=== PATIENT | female | born 1950 | race Caucasian/White ===

== ENCOUNTER 2016-06-27 15:16 | Inpatient (IN) ==
--- NOTE | 2016-06-27 16:32 | CT Report ---
CT angio neck Indication: Left common carotid artery dissection instantly noted on ultrasound at outside facility. CT ANGIOGRAM CAROTID ARTERIES DLP: 100 mGy*cm. One or more of the following dose reduction techniques was used: Automated exposure control, adjustment of the mA and/or kV according the patient size, or use of iterative reconstruction techniques. Technique: Axial thin cuts CT images were obtained from the aortic arch through the skull base during the arterial phase of contrast injection. 3-D vascular MIPs reconstructions and multiplanar reformats were evaluated. Omnipaque 350, 80 cc given. Comparison: None. Findings: Severity of stenosis based on NASCET criteria. Reference downstream ICA diameters are 3 4 4 mm on the right and 3.7 mm on the left. There is no significant atheromatous disease of either carotid bifurcation and no measurable stenosis on either side. The right ICA is extremely tortuous with a 180 degrees horizontal band present. Downstream of this tortuosity of the right ICA shows a undulating pattern, consistent with "string of beads". Contour of the left ICA is smooth without significant tortuosity present. Both internal carotid arteries are widely patent through the skull base. The right common carotid artery is grossly unremarkable. There is a left CCA dissection present at the level of the thyroid gland, over a distance of approximately 25 mm. The lumen of the left CCA is not appreciably narrowed, and the dissection penetrates to a depth of 2.0 mm. Minimal enhancement of the false lumen noted. Both vertebral arteries are widely patent and relatively symmetric in size. The subclavian arteries are widely patent. The aortic arch shows no dissection or aneurysm. There is virtually no atheromatous disease of the aorta present. No superior or cervical chain lymphadenopathy. Thyroid is homogeneous. Salivary glands are symmetric. Pulmonary apices are clear. No significant degenerative changes cervical spine. Visualized sinuses are clear. Airway is patent. Epiglottis is thin and the vocal cords are symmetric. Impression: 1. 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 The dissection is at the level of the thyroid gland just above the thoracic outlet. 2. Tortuosity of the right ICA with "string of beads" pattern, indicating fibromuscular dysplasia Comment: Findings discussed with both Dr. Costa and Layla at approximately 1615 hours. PROCEDURE INTERPRETED AT [facility] DEPARTMENT OF RADIOLOGY Final Report Signed by: Panchito Head M.D.
--- NOTE | 2016-06-27 16:42 | Event Note ---
65-year-old female, patient of Dr. Rich's, sent for CT angiogram after incidental finding of left CCA dissection on ultrasound at his clinic. Patient underwent CT angiogram of the carotid arteries showing a 25 mm long dissection of the proximal left CCA, as well as right ICA fibromuscular dysplasia. Patient's only neurologic complaints are of episodes of dizziness, and a history of migraine headaches of which she has not recently had one. She does experience periodic right-sided neck pain as well. Patient reports a recent history of brief episodes of chest pain for which she has self medicated with baby aspirin but not sought additional care. She currently denies chest pain. After discussing the CT angiogram findings with Dr. Rich and Dr. Costa, it was decided to admit the patient to Dr. Costa's service for anticoagulation with Lovenox and additional evaluation. Admit orders entered by me as a courtesy, and given history of recent chest pain, EKG, chest x-ray and cardiology consult ordered as well.
--- NOTE | 2016-06-27 17:13 | EKG Report ---
Stationary ECG Study [facility] Test Date: 06/27/2016 5:12:29 PM Pat Name: OTIS SELLERS Department: Room: 324 Gender: F Consulting Services Manager: HASMUKH,FOREST OFFICER : 1950 Requested by: Panchito Head Order Number: [id number] Reading MD: RANDY BUENROSTRO Intervals [place] Rate: 73 P: 60 MS: 162 QRS: 13 QRSD: 97 T: 37 QT: 388 QTc: 413 Interpretive Statements SINUS RHYTHM Electronically Signed On 07-01-16 16:12:41 CDT by RANDY BUENROSTRO [email or web address]
--- NOTE | 2016-06-27 18:06 | XRay Report ---
Exam: Chest 2 views Date: June 27, 2016 at 5:36 PM Comparison: Chest PA lateral January 02, 2012 Reason: Chest pain Findings: The cardiac silhouette is normal in size. No focal consolidation, pneumothorax or pleural effusion is identified. No acute osseous process is seen. Surgical clips are present within the right upper abdomen, suggesting cholecystectomy. Impression: No acute cardiopulmonary process is identified. PROCEDURE INTERPRETED AT [facility] DEPARTMENT OF RADIOLOGY Final Report Signed by: Dr. Vivi Sandoval
[2016-06-27 19:36] LABS: Basophils % 0.5 % (0.0-0.8); Eosinophils # 0.1 10*3/uL (0.0-0.87); Eosinophils % 2.2 % (0.00-10.9); Immature Granulocytes % 0.3 %; Immature Granulocytes Absolute 0.02 #; Lymphocytes # 1.9 10*3/uL (1.4-4.0); Mean Corpuscular HGB Conc 34.2 GM/DL (32-36); Mean Corpuscular Hemoglobin 31 PG (27-34); Mean Corpuscular Volume 90.3 FL (87-102); Mean Platelet Volume 9.7 FL (9.6-12.0); Monocytes # 0.3 10*3/uL (0.11-0.8); Monocytes % 4.9 % (1.7-12.7); Neutrophils # 3.7 10*3/uL (1.4-7.4); Neutrophils % 61.1 % (38.7-73.9); Platelet Count 127 T/CUMM (130-400); Red Blood Count 4.21 MC/CUMM (3.8-5.5); Red Cell Distribution Width 13.3 % (9.3-17.3)
[2016-06-27 20:13] LABS: Calcium 9.2 MG/DL (8.5-10.1); Potassium 3.9 MMOL/L (3.5-5.1)
[2016-06-27] MEDS ORDERED: ENOXAPARIN 30 MG/0.3 ML SYRINGE SUBCUT SCH (21:00)
[2016-06-28] MEDS ORDERED: ACETAMINOPHEN 325 MG TABLET PO PRN (09:33)
--- NOTE | 2016-06-28 11:01 | Discharge Summary ---
Hospital Course - Hospital Course Hospital Course: Melina Mabry is a 65-year-old woman who was found on outpatient carotid ultrasound yesterday to have what appeared to be a dissection of the left common carotid artery she was sent to radiology where a CT angiogram revealed what may be a dissection of the mid left common carotid artery but also may be a small area of just thickening of the artery heart fiber muscular displeasure she also has some suggestion of fibromuscular dysplasia of the right internal carotid artery she has no history of significant trauma or episodes of acute pain that would suggest a traumatic dissection or for that matter a spontaneous dissection she has never had a stroke or TIA she has had some dizzy spells but overall she is not at high risk for carotid occlusive disease based on history of non-smoking female mild hypertension no diabetes. She is been observed overnight and evaluated again by me and Dr. Head we reviewed the CT angiogram and have some question as to whether this is dissection versus just a localized area of arterial thickening such as might be associated with fibromuscular dysplasia. Are thoughts are that this should not be treated surgically or interventionally at this time but should be observed. I do think she should continue to take an 81 mg aspirin but do not believe we need to increase her anticoagulant therapy. Due to a history of some chest tightness and some difficulty intermittent mild shortness of breath Dr. Lo has seen her and will plan to follow-up with outpatient stress test and outpatient office visit at this point time I does examine Mrs. Mabry and discussed with her and her our findings and our thoughts and our plan that will be to follow-up with a CT angiogram in 1 month and of course have her follow-up with Dr. Mckeon for chest tightness she had her agree with this plan she will be discharged this morning Specialty Discharge - Follow Up or Referrals Follow up with: Krystian Lo MD [Physician] - 1 Week (OUTPATIENT STRESS TEST 1 WEEK AFTER DISCHARGE. FOLLOW UP WITH DR. LO 1 WEEK AFTER STRESS TEST) Discharge Plan - Discharge Data Disposition: Disch To Home/Self Care Condition at Discharge: Stable Discharge Diet: advance to your usual diet Activity: resume usual activities as tolerated Hygiene: no restrictions Weight Bearing at Discharge: full weight bearing Driving: no restrictions Contact your physician if you experience:: Shortness of breath - Discharge Medications No Action [place]-3/Dha/Epa/Fish Oil [Fish Oil 1,000 mg Softgel] 2,000 mg PO DAILY Nebivolol [Bystolic] 5 mg PO DAILY Aspirin [Aspirin EC] 81 mg PO DAILY Promethazine Tab [Phenergan Tab] 25 mg PO BID PRN PRN Reason: Nausea HYDROcodone/ACETAMIN 7.5-325 [[place] 7.5-325] 1 tablet PO BID PRN PRN Reason: Pain Esomeprazole Magnesium [Nexium] 20 mg PO DAILY - Follow Up or Referral Follow Up: Krystian Lo MD [Physician] - 1 Week (OUTPATIENT STRESS TEST 1 WEEK AFTER DISCHARGE. FOLLOW UP WITH DR. LO 1 WEEK AFTER STRESS TEST) Jason Costa MD [Physician] - 1 Month (ct angiogram neck in 1 month prior to appt) Warner Lay MD [Physician] - - Forms/Instructions Exam - Constitutional Vitals: Period Temp Pulse Resp BP Sys/[place] Pulse Ox Last 24 Hr 97.5 F-98.4 F 66-77 16-20 107-142/56-81 95-100 General appearance: normal weight, no acute distress - Head Head exam: Present: normal inspection - Eye Eye exam: Present: EOMI Pupils: Present: BUCK - ENT ENT exam: Present: normal external ear exam - Neck Neck exam: Present: normal inspection - Respiratory Respiratory exam: Present: clear to auscultation bilaterally - Cardiovascular Cardiovascular exam: Present: regular rate and rhythm, other (I detect no carotid bruits nor any sort of systolic murmur there is no palpable thrill in the neck or tenderness to speak of on the left there is mild tenderness posteriorly on the right suggesting musculoskeletal discomfort) - GI/Abdominal GI/Abdominal exam: Present: normal bowel sounds, soft - Extremities Exam Extremities exam: Present: normal inspection - Neurological Exam Neurological exam: Present: alert, oriented X3, normal gait, CN II-XII intact - Psychiatric Psychiatric exam: Present: normal affect, normal mood - Skin Skin exam: Present: normal color, warm Discharge Results Labs on day of discharge: Labs from last 24 hours 06/28/16 06/27/16 06/27/16 02:59 19:26 19:26 WBC 6.0 RBC 4.21 Hgb 13.0 Hct 38.0 MCV 90.3 MCH 31 MCHC 34.2 RDW 13.3 Plt Count 127 L MPV 9.7 Neut % (Auto) 61.1 Lymph % (Auto) 31.0 [place] % (Auto) 4.9 Eos % (Auto) 2.2 Baso % (Auto) 0.5 Neut # (Auto) 3.7 Lymph # (Auto) 1.9 [place] # (Auto) 0.3 Eos # (Auto) 0.1 Baso # (Auto) 0.0 Immature Gran % 0.3 Nucleated RBC % 0.0 Immature Gran # 0.02 Nucleated RBCs # 0.00 Sodium 143 Potassium 3.9 Chloride 105 Carbon Dioxide 30 Anion Gap 11.9 BUN 13 Creatinine 0.80 0.80 POC Creatinine GFR Calculation 73 73 POC Estimated GFR (eGFR) BUN/Creatinine Ratio 16.00 Glucose 133 H Calculated Osmolality 286.0 Calcium 9.2 06/27/16 15:40 WBC RBC Hgb Hct MCV MCH MCHC RDW Plt Count MPV Neut % (Auto) Lymph % (Auto) [place] % (Auto) Eos % (Auto) Baso % (Auto) Neut # (Auto) Lymph # (Auto) [place] # (Auto) Eos # (Auto) Baso # (Auto) Immature Gran % Nucleated RBC % Immature Gran # Nucleated RBCs # Sodium Potassium Chloride Carbon Dioxide Anion Gap BUN Creatinine POC Creatinine 0.61 GFR Calculation POC Estimated GFR (eGFR) > 60 BUN/Creatinine Ratio Glucose Calculated Osmolality Calcium - Imaging and Cardiology Procedure: CT: other (I have reviewed his CT angiogram with Dr. Head the findings in the left common carotid artery are subtle small are not clearly indicative of the dissection but may be a small localized area of fibromuscular dysplasia or some similar arterial wall thickening we have also reviewed the CT angiogram evaluation of the right internal carotid artery that shows some tortuosity and significant twisting and possibly some early or mild fibromuscular dysplasia but again she does not have findings consistent with significant atherosclerotic disease basically we see no atherosclerotic plaquing of her carotid bifurcations or in her aortic arch) DS: Provider Date of admission: 06/27/16 16:31 Attending physician on admission: Jason Costa MD Consults: 06/27/16 16:35 Consult to Physician [CONS] Routine Comment: Chest pain Consulting Provider: Cardiology - [facility] Person Notified: [email or web address] Date Notified: 06/27/16 Time Notified: 17:30 Discharging clinician: Jason Costa MD
--- NOTE | 2016-06-28 11:13 | Cardiology Consult Note ---
Humberto Baron Vanessa, RN, am scribing for, and in the presence of, Krystian Lo MD 11:13. Assessment and Plan - Time spent with patient Time spent with patient: Greater than 30 minutes (due to assessment, planning, documentation) (1) Chest pain Status: Acute Assessment and plan: 1. 65-year-old WF with hypertension and dyslipidemia found to have common carotid dissection by ultrasound/CTA, being treated conservatively at this point by Dr. Costa 2. At least 2 weeks of episodes of chest discomfort lasting 1-2 minutes which are atypical (usually at rest and radiate to the arm or upper back) but are associated with some shortness of breath and some modest progressive dyspnea on exertion in recent months 3. Family history of CAD with her mother father having heart attacks at age 70 and 74 respectively. 4. Schedule exercise myocardial scan in the clinic next week if possible 5. Follow-up in clinic in approximately 1-2 weeks time after the stress test. 6. She can be discharged from cardiac standpoint. Current Visit: Yes (2) Hypertension Status: Acute Current Visit: Yes (3) Dyslipidemia Status: Acute Current Visit: Yes (4) Carotid artery dissection Status: Acute Current Visit: Yes History of Present Illness - Data of Consult Patient: new to practice Consult date: 06/28/16 Requesting Physician: Panchito Head Primary care physician: Warner Lay - Consult Narrative Reason for consult: CP History of present illness: PRIMARY CUTTER HOT KNIFE: DR. THEE LO (NEW) PCP: DR. LAY CARDIOLOGY CONSULT NOTE: CHEST PAIN, CCA DISSECTION Ms. Mabry is a 65 year old white female followed by Dr. Miguel Loaiza in the past. Risk factors significant for: hypertension, hyperlipidemia, family history of CAD. She is a lifelong nonsmoker. Past medical history also includes tachycardia, anxiety, and reflux. Patient presented to her PCP with right sided neck pain, some recent dizziness, and diagnostic ultrasound revealed a left common carotic artery dissection. Presented to [facility] radiology department on 06/[address] angiogram which revealed a 25 mm dissection. It will be followed up and managed by Dr. Costa, and there will be no surgical intervention at this time. Patient had some recent chest tightness also with radiation to back and shoulder blade area. She has fatigue also and some minimal dyspnea with exertion recently. She also reports recent increase in stress level. Chest tightness is not associated with nausea, but she does report when chest tightness occurs, it is sometimes hard to take in a deep breath. Patient reports positive family history of CAD with her mother having a heart attack in her 70s and also father who after a heart attack in his 70s. EKG reveals sinus rhythm without acute ischemic finding. CC: Jason Costa MD - Home Medications and Allergies Home Medications: Home Medications Medication Instructions Recorded Confirmed Type Aspirin [Aspirin EC] 81 mg PO DAILY 06/28/16 06/28/16 History Esomeprazole Magnesium [Nexium] 20 mg PO DAILY 06/28/16 06/28/16 History HYDROcodone/ACETAMIN 7.5-325 1 tablet PO BID PRN 06/28/16 06/28/16 History [[place] 7.5-325] Nebivolol [Bystolic] 5 mg PO DAILY 06/28/16 06/28/16 History [place]-3/Dha/Epa/Fish Oil [Fish Oil 2,000 mg PO DAILY 06/28/16 06/28/16 History 1,000 mg Softgel] Promethazine Tab [Phenergan Tab] 25 mg PO BID PRN 06/28/16 06/28/16 History Allergies/Adverse Reactions: Allergies Allergy/AdvReac Type Severity Reaction Status Date / Time sumatriptan [From Imitrex] Allergy Unknown Verified 06/27/16 17:27 - Constitutional Constitutional: Present: as per HPI - EENT Eyes: Present: as per HPI Nose, mouth and throat: Present: as per HPI - Cardiovascular Cardiovascular: Present: as per HPI - Respiratory Respiratory: Present: as per HPI - Gastrointestinal Gastrointestinal: Present: as per HPI - Genitourinary Genitourinary: Present: as per HPI - Musculoskeletal Musculoskeletal: Present: as per HPI - Neurological Neurological: Present: as per HPI - Psychiatric Psychiatric: Present: as per HPI - Endocrine Endocrine: Present: as per HPI - Hematologic/Lymphatic Hematologic/Lymphatic: Present: as per HPI Medical,Surgical,& Family Hx - Medical History Cardio: History of: Hypertension No history of: Cardiac Dysrhythmia, CHF, CAD, [place], Pacemaker, PVD Psychological: History of: Anxiety Disorders Neurology: No history of: Seizures, TIA Endocrine: History of: Dyslipidemia No history of: Diabetes Mellitus (IDDM), Diabetes Mellitus (NIDDM), Thyroid Disorder Rheumatology: No history of;: Gout Respiratory: No history of: COPD, Obstructive Sleep Apnea Renal: No history of: Renal Failure Genitourinary: No history of: Recurring Urinary Tract Infections Gastrointestinal: History of: GERD No history of: Gastrointestinal Bleed Musculoskeletal: History of: Back/Neck Problems No history of: Amputation Hematology: No history of: Anemia, Blood Transfusion Reaction Other: No history of: Cancer - Surgical History Cardiac Surgeries: Patient Denies: Femoral-Popliteal Bypass Graft, Cardiac Catheterization, Cardiac Surgery, Carotid Endarterectomy, Internal Defibrillator, Vascular Access Devices Thoracic Surgeries: Patient denies;: Organ Transplant, Lobectomy Neurologic Surgeries: Patient denies: Neurologic Surgery HEENT Surgeries: Patient denies: Carotid Endarterectomy, Tonsilectomy & Adenoidectomy Abdominal Surgeries: Patient denies: Abdominal Surgery, Splenectomy Reproductive Surgeries: Surgical HX of;: Hysterectomy Patient denies;: Genitourinary Surgery Orthopedic Surgeries: Patient denies;: Implanted Devices, Orthopedic Surgery, Spinal Surgery, Total Hip Replacement, Total Knee Replacement - Family History Family History: Reports;: Family Cancer (mother colon cancer), Family Heart Disease (mom, dad), Family Hypertension (mom, dad), Family Psychiatric Problems Comment Only: Family Stroke (grandmother) Physical Examination Vital Signs Temp Pulse Resp BP Pulse Ox 98.4 F 77 20 135/81 97 06/27/16 16:51 06/27/16 16:51 06/27/16 16:51 06/27/16 16:51 06/27/16 16:51 General: Present: Appears Well, No Apparent Distress Neck: Present: Supple Neck, Midline Trachea, No JVD/HJR, No Masses, No Bruit Cardiac: Present: Reg Rate and Rhythm, No Murmur Lungs: Present: Clear Ascult./Percussion, No Wheeze, Rales, Rhonchi. Absent: Oxygen Neuro: Present: Grossly Intact. Absent: Numbness, Tingling, Weakness, Resting Tremor, Essential Tremor Abdomen: Present: Soft, Active Bowel Sounds. Absent: Tender, Firm Skin: Present: Clear. Absent: Rash, Suspicious Lesions, Bruising Extremities: Present: No Clubbing, No Cyanosis, No Edema, Normal Upper Extr. Pulses, Normal Lower Extr. Pulses, Capillary Refill (normal) Result/EKG - Labs CBC & BMP: 06/27/16 19:26 06/28/16 02:59 Lab Results: I have reviewed the past 24 hour labs Labs: Laboratory Results - last 24 hr 06/27/16 06/27/16 06/27/16 15:40 19:26 19:26 WBC 6.0 RBC 4.21 Hgb 13.0 Hct 38.0 MCV 90.3 MCH 31 MCHC 34.2 RDW 13.3 Plt Count 127 L MPV 9.7 Neut % (Auto) 61.1 Lymph % (Auto) 31.0 [place] % (Auto) 4.9 Eos % (Auto) 2.2 Baso % (Auto) 0.5 Neut # (Auto) 3.7 Lymph # (Auto) 1.9 [place] # (Auto) 0.3 Eos # (Auto) 0.1 Baso # (Auto) 0.0 Immature Gran % 0.3 Nucleated RBC % 0.0 Immature Gran # 0.02 Nucleated RBCs # 0.00 Sodium 143 Potassium 3.9 Chloride 105 Carbon Dioxide 30 Anion Gap 11.9 BUN 13 Creatinine 0.80 POC Creatinine 0.61 GFR Calculation 73 POC Estimated GFR (eGFR) > 60 BUN/Creatinine Ratio 16.00 Glucose 133 H Calculated Osmolality 286.0 Calcium 9.2 06/28/16 02:59 WBC RBC Hgb Hct MCV MCH MCHC RDW Plt Count MPV Neut % (Auto) Lymph % (Auto) [place] % (Auto) Eos % (Auto) Baso % (Auto) Neut # (Auto) Lymph # (Auto) [place] # (Auto) Eos # (Auto) Baso # (Auto) Immature Gran % Nucleated RBC % Immature Gran # Nucleated RBCs # Sodium Potassium Chloride Carbon Dioxide Anion Gap BUN Creatinine 0.80 POC Creatinine GFR Calculation 73 POC Estimated GFR (eGFR) BUN/Creatinine Ratio Glucose Calculated Osmolality Calcium - EKG EKG results: interpreted by me, no acute changes EKG shows: sinus rhythm Specialty Discharge - Follow Up or Referrals Follow up with: Warner Lay MD [Physician] - Krystian Lo MD [Physician] - 1 Week (OUTPATIENT STRESS TEST 1 WEEK AFTER DISCHARGE. FOLLOW UP WITH DR. LO 1 WEEK AFTER STRESS TEST) Jason Costa MD [Physician] - 1 Month (ct angiogram neck in 1 month prior to appt) Malena Baron Randall Scott, MD, personally performed the services described in this documentation, ascribed by Jossie Paul RN in my presence, and it is both accurate and complete .
[2016-06-28 14:05] VITALS: BP 119/58
== END 2016-06-28 12:50 | disposition home or self-care (01) | DRG 301 ==
LOC: N.CT 15:16 → N.3E 16:31
PROVIDERS: ADMIT Surgery; ATTEND Surgery

== ENCOUNTER 2019-09-09 12:01 | Observation (INO) ==
[2019-09-09 12:55] LABS: Basophils % 0.9 % (0.0-0.8); Eosinophils # 0.1 10*3/uL (0.0-0.87); Eosinophils % 3.1 % (0.00-10.9); Hematocrit 36.4 VOL% (35.7-47.0); Hemoglobin 11.9 GM/DL (12.0-16.0); Immature Granulocytes % 0.3 %; Immature Granulocytes Absolute 0.01 #; Lymphocytes # 1.2 10*3/uL (1.4-4.0); Lymphocytes % 35.9 % (21.3-54.2); Mean Corpuscular HGB Conc 32.7 GM/DL (32-36); Monocytes % 9.8 % (1.7-12.7); Platelet Count 95 T/CUMM (130-400); Red Blood Count 3.79 MC/CUMM (3.8-5.5); Red Cell Distribution Width 15.4 % (9.3-17.3); White Blood Count 3.3 T/CUMM (4-12)
[2019-09-09 13:16] LABS: Hypochromasia Slight; Platelet Estimate Decreased
[2019-09-09 13:17] LABS: Albumin 3.3 G/DL (3.4-5.0); Bilirubin,Total 0.7 MG/DL (0.2-1.0); Calcium 9.1 MG/DL (8.5-10.1); Osmolality,Calculated 283.1 MOS/KG (273-304); Total Protein 7.6 G/DL (6.4-8.3)
[2019-09-09] MEDS ORDERED: SODIUM CHLORIDE 0.9% 1,000 ML IV STA (14:40)
[2019-09-09 14:52] LABS: Apearance,Urine Slightly Hazy (Clear); Bacteria,Urine Occasional /HPF (Few); Bilirubin,Urine Negative (Negative); Blood, Urine Small mg/dL (Negative); Glucose,Urine (UA) Negative (Negative); Ketones,Urine Negative (Negative); Mucus,Urine Occasional /LPF (Occasional); Nitrite,Urine Positive (Negative); Protein,Urine Negative; RBC,Urine 1 /HPF (0-4); Squamous Epithelial Cell,Urine Occasional /HPF (0-10); Urine Color Yellow (Yellow); Urine Specific Gravity 1.011 (1.001-1.035); Urine Urobilinogen < 2.0 EU/DL (0.2-1.0); WBC,Urine 23 /HPF (0-6)
[2019-09-09 15:07] LABS: Barbiturates Screen,Urine Negative (Negative); Benzodiazepines Screen,Urine Negative (Negative); Cannabinoid Screen,Urine Negative (Negative); Opiate Screen,Urine Positive (Negative); Phencyclidine Screen,Urine Negative (Negative)
[2019-09-09] MEDS ORDERED: cefTRIAXone 1,000 MG in SODIUM CHLORIDE 0.9% 100 ML IV STA (15:39)
[2019-09-09] MEDS ORDERED: CYCLOBENZAPRINE 10 MG TABLET PO PRN (16:23)
[2019-09-09] MEDS ORDERED: GLUCAGON 1 MG VIAL IM PRN (16:24)
[2019-09-09] MEDS ORDERED: ONDANSETRON 4 MG/2 ML VIAL IV PRN (16:24)
[2019-09-09] MEDS ORDERED: DEXTROSE 50% 25 GM/50 ML VIAL IV PRN (16:24)
[2019-09-09] MEDS ORDERED: hydrALAZINE 20 MG/1 ML VIAL IV PRN (16:24)
[2019-09-09] MEDS: SODIUM CHLORIDE 0.9% 1,000 ML IV SCH (17:55)
[2019-09-09] MEDS: LACTULOSE 20 GM/30 ML UDCUP PO SCH ×2 (17:55→22:35)
[2019-09-09] MEDS: TAMSULOSIN 0.4 MG CAPSULE PO SCH (22:38)
[2019-09-09] MEDS: CHOLECALCIFEROL 1,000 UNIT TABLET PO SCH (22:38)
[2019-09-09] MEDS: SIMVASTATIN 10 MG TABLET PO SCH (22:38)
[2019-09-10] MEDS: LACTULOSE 20 GM/30 ML UDCUP PO SCH ×6 (02:39→21:32)
[2019-09-10 05:28] LABS: Basophils % 0.6 % (0.0-0.8); Eosinophils # 0.1 10*3/uL (0.0-0.87); Eosinophils % 2.8 % (0.00-10.9); Hemoglobin 10.8 GM/DL (12.0-16.0); Immature Granulocytes % 0.6 %; Immature Granulocytes Absolute 0.02 #; Lymphocytes # 1.1 10*3/uL (1.4-4.0); Lymphocytes % 32.8 % (21.3-54.2); Mean Corpuscular HGB Conc 32.7 GM/DL (32-36); Mean Corpuscular Volume 96.2 FL (87-102); Mean Platelet Volume 9.5 FL (9.6-12.0); Monocytes % 10.1 % (1.7-12.7); Neutrophils % 53.1 % (38.7-73.9); Red Blood Count 3.43 MC/CUMM (3.8-5.5); Red Cell Distribution Width 15.3 % (9.3-17.3); White Blood Count 3.3 T/CUMM (4-12)
[2019-09-10 05:53] LABS: Platelet Count 84 T/CUMM (130-400)
[2019-09-10 05:56] LABS: Albumin 3.1 G/DL (3.4-5.0); Bilirubin,Total 1.7 MG/DL (0.2-1.0); Calcium 8.7 MG/DL (8.5-10.1); Osmolality,Calculated 283.8 MOS/KG (273-304); Risk Ratio 3.79; Thyroid Stimulating Hormone 1.15 uIU/ml (0.358-3.74); VLDL CHOLESTEROL 21.4 MG/DL
[2019-09-10] MEDS: cefTRIAXone 1,000 MG in SYRINGE 1 EACH IV SCH (09:25)
[2019-09-10] MEDS: PANTOPRAZOLE 40 MG TABLET PO SCH (09:25)
[2019-09-10] MEDS: FLUTICASONE 50 MCG NASAL SPRAY 16 GM BOTTLE BOTH NARES SCH (09:25)
[2019-09-10] MEDS: NEBIVOLOL 5 MG TABLET PO SCH (09:25)
[2019-09-10] MEDS: CHOLECALCIFEROL 1,000 UNIT TABLET PO SCH ×2 (09:25→21:14)
[2019-09-10] MEDS: MULTIVITAMIN (CENTRUM) TABLET PO SCH (09:25)
[2019-09-10] MEDS: RIFAXIMIN 550 MG TABLET PO SCH ×2 (12:22→21:14)
[2019-09-10] MEDS: PROMETHAZINE 25 MG TABLET PO PRN (12:22)
[2019-09-10] MEDS: SODIUM CHLORIDE 0.9% 1,000 ML IV SCH ×2 (14:52→21:32)
[2019-09-10] MEDS: TAMSULOSIN 0.4 MG CAPSULE PO SCH (21:13)
[2019-09-10] MEDS: SIMVASTATIN 10 MG TABLET PO SCH (21:14)
[2019-09-11] MEDS: LACTULOSE 20 GM/30 ML UDCUP PO SCH ×6 (02:11→22:19)
[2019-09-11 06:17] LABS: Basophils % 0.6 % (0.0-0.8); Eosinophils # 0.1 10*3/uL (0.0-0.87); Eosinophils % 2.4 % (0.00-10.9); Hematocrit 34.8 VOL% (35.7-47.0); Hemoglobin 11.3 GM/DL (12.0-16.0); Immature Granulocytes % 0.3 %; Immature Granulocytes Absolute 0.01 #; Lymphocytes # 0.9 10*3/uL (1.4-4.0); Lymphocytes % 25.4 % (21.3-54.2); Mean Corpuscular HGB Conc 32.5 GM/DL (32-36); Mean Corpuscular Volume 94.6 FL (87-102); Mean Platelet Volume 9.9 FL (9.6-12.0); Monocytes % 10.4 % (1.7-12.7); Neutrophils % 60.9 % (38.7-73.9); Platelet Count 84 T/CUMM (130-400); Red Blood Count 3.68 MC/CUMM (3.8-5.5); Red Cell Distribution Width 15.5 % (9.3-17.3); White Blood Count 3.4 T/CUMM (4-12)
[2019-09-11 06:48] LABS: Albumin 3.2 G/DL (3.4-5.0); Bilirubin,Total 0.7 MG/DL (0.2-1.0); Calcium 8.9 MG/DL (8.5-10.1); Osmolality,Calculated 282.8 MOS/KG (273-304); Total Protein 7.4 G/DL (6.4-8.3)
[2019-09-11] MEDS: SODIUM CHLORIDE 0.9% 1,000 ML IV SCH (09:41)
[2019-09-11] MEDS: RIFAXIMIN 550 MG TABLET PO SCH ×2 (09:42→21:19)
[2019-09-11] MEDS: NEBIVOLOL 5 MG TABLET PO SCH (09:42)
[2019-09-11] MEDS: SODIUM CHLOR 0.9% KCL 40 MEQ 40 MEQ/1,000 ML BAG IV SCH ×2 (09:42→23:35)
[2019-09-11] MEDS: CHOLECALCIFEROL 1,000 UNIT TABLET PO SCH ×2 (09:42→21:19)
[2019-09-11] MEDS: FLUTICASONE 50 MCG NASAL SPRAY 16 GM BOTTLE BOTH NARES SCH (09:44)
[2019-09-11] MEDS: PANTOPRAZOLE 40 MG TABLET PO SCH (09:44)
[2019-09-11] MEDS: cefTRIAXone 1,000 MG in SYRINGE 1 EACH IV SCH (09:44)
[2019-09-11] MEDS: MULTIVITAMIN (CENTRUM) TABLET PO SCH (09:44)
[2019-09-11] MEDS: PROMETHAZINE 25 MG TABLET PO PRN (09:47)
[2019-09-11] MEDS: SIMVASTATIN 10 MG TABLET PO SCH (21:19)
[2019-09-11] MEDS: TAMSULOSIN 0.4 MG CAPSULE PO SCH (21:19)
[2019-09-12] MEDS: LACTULOSE 20 GM/30 ML UDCUP PO SCH ×3 (04:04→09:09)
[2019-09-12 06:06] LABS: Basophils % 0.3 % (0.0-0.8); Eosinophils # 0.1 10*3/uL (0.0-0.87); Eosinophils % 2.4 % (0.00-10.9); Hematocrit 33.3 VOL% (35.7-47.0); Hemoglobin 10.9 GM/DL (12.0-16.0); Lymphocytes # 1.3 10*3/uL (1.4-4.0); Lymphocytes % 39.8 % (21.3-54.2); Mean Corpuscular HGB Conc 32.7 GM/DL (32-36); Mean Corpuscular Volume 95.1 FL (87-102); Mean Platelet Volume 10.2 FL (9.6-12.0); Monocytes % 10.3 % (1.7-12.7); Neutrophils % 47.2 % (38.7-73.9); Red Cell Distribution Width 15.6 % (9.3-17.3); White Blood Count 3.3 T/CUMM (4-12)
[2019-09-12 06:13] LABS: Platelet Count 81 T/CUMM (130-400)
[2019-09-12 06:37] LABS: Hypochromasia 1+; Platelet Estimate Decreased
[2019-09-12 06:54] LABS: Albumin 3.1 G/DL (3.4-5.0); Calcium 8.8 MG/DL (8.5-10.1); Osmolality,Calculated 286.6 MOS/KG (273-304)
[2019-09-12 08:53] VITALS: BP 135/63
[2019-09-12] MEDS ORDERED: POTASSIUM CHLORIDE 20 MEQ TABLET PO SCH (09:00)
[2019-09-12] MEDS ORDERED: LACTOBACILLUS RHAMNOSUS GG CAPSULE PO SCH (09:00)
[2019-09-12] MEDS: NEBIVOLOL 5 MG TABLET PO SCH (09:08)
[2019-09-12] MEDS: MULTIVITAMIN (CENTRUM) TABLET PO SCH (09:08)
[2019-09-12] MEDS: FLUTICASONE 50 MCG NASAL SPRAY 16 GM BOTTLE BOTH NARES SCH (09:08)
[2019-09-12] MEDS: RIFAXIMIN 550 MG TABLET PO SCH (09:09)
[2019-09-12] MEDS: CHOLECALCIFEROL 1,000 UNIT TABLET PO SCH (09:09)
[2019-09-12] MEDS: PANTOPRAZOLE 40 MG TABLET PO SCH (09:09)
[2019-09-12] MEDS: cefTRIAXone 1,000 MG in SYRINGE 1 EACH IV SCH (09:09)
== END 2019-09-12 10:27 | disposition home health service (06) ==
LOC: N.ED 12:01 → N.EDINP 12:01 → SUATTDRO 15:45 → N.3E 18:20
PROVIDERS: ADMIT Hospitalist; ATTEND Family Medicine

== ENCOUNTER 2020-01-03 03:37 | Inpatient (IN) ==
[2020-01-03] MEDS ORDERED: ACETAMINOPHEN 650 MG SUPP RECTAL STA (03:55)
[2020-01-03] MEDS ORDERED: LORazepam 2 MG/1 ML VIAL IV STA (03:57)
[2020-01-03] MEDS ORDERED: SODIUM CHLORIDE 0.9% 1,000 ML IV STA ×2 (03:57→04:33)
[2020-01-03] MEDS ORDERED: LORazepam 2 MG/1 ML VIAL ONE (03:59)
[2020-01-03 04:19] LABS: Basophils % 0.4 % (0.0-0.8); Hematocrit 38.5 VOL% (35.7-47.0); Hemoglobin 12.5 GM/DL (12.0-16.0); Immature Granulocytes % 8.2 %; Immature Granulocytes Absolute 0.59 #; Lymphocytes % 13.7 % (21.3-54.2); Mean Corpuscular HGB Conc 32.5 GM/DL (32-36); Mean Corpuscular Volume 92.1 FL (87-102); Mean Platelet Volume 11.4 FL (9.6-12.0); Monocytes % 2.5 % (1.7-12.7); NRBC # 0.03 10*3/uL; Neutrophils % 75.2 % (38.7-73.9); Red Blood Count 4.18 MC/CUMM (3.8-5.5); Red Cell Distribution Width 16.4 % (9.3-17.3); White Blood Count 7.2 T/CUMM (4-12)
[2020-01-03 04:25] LABS: Platelet Count 37 T/CUMM (130-400)
[2020-01-03 04:42] LABS: Alanine Aminotransferase 39 U/L (13-56); Alkaline Phosphatase 191 U/L (45-117); Aspartate Amino Transferase 76 U/L (0-37); Blood Urea Nitrogen 41 MG/DL (7-18); Calcium 9.3 MG/DL (8.5-10.1); Estimated Glom Filtration Rate 22 ML/MIN; Glucose 116 MG/DL (74-106); Osmolality,Calculated 289.4 MOS/KG (273-304); Total Protein 7.7 G/DL (6.4-8.3)
[2020-01-03] MEDS ORDERED: PIPERACILLIN/TAZOBACTAM 3,375 MG VIAL IV ONE (04:49)
[2020-01-03] MEDS ORDERED: SODIUM CHLORIDE 0.9% 250 ML IV ONE (04:50)
[2020-01-03] MEDS ORDERED: PIPERACILLIN/TAZOBACTAM 3,375 MG in SODIUM CHLORIDE 0.9% 100 ML IV STA (04:52)
[2020-01-03 04:56] LABS: ABG Base Excess -8.9 MMOL/L (-2.5-2.5); ABG HCO3 17.2 MMOL/L (20-26); ABG Oxygen Saturation 93.8 % (95-100); ABG PCO2 23.4 MM HG (35-48); ABG PH 7.401 (7.35-7.45); ABG PO2 70.1 MM HG (80-95); ABG TCO2 13.2 MMOL/L (23-27)
[2020-01-03 05:00] LABS: Bacteria,Urine Occasional /HPF (Few); Bilirubin,Urine Negative (Negative); Blood, Urine Large mg/dL (Negative); Glucose,Urine (UA) Negative (Negative); Hyaline Casts,Urine 2 /LPF (0-3); Ketones,Urine Negative (Negative); Mucus,Urine Occasional /LPF (Occasional); Nitrite,Urine Negative (Negative); Protein,Urine 30 MG/DL; RBC,Urine 386 /HPF (0-4); Squamous Epithelial Cell,Urine Occasional /HPF (0-10); Urine Appearance CLOUDY (Clear); Urine Color Yellow (Yellow); Urine Specific Gravity 1.016 (1.001-1.035); Urine Urobilinogen < 2.0 EU/DL (0.2-1.0); WBC,Urine 87 /HPF (0-6)
[2020-01-03] MEDS ORDERED: SODIUM CHLORIDE 0.9% 500 ML IV STA (05:00)
[2020-01-03 05:04] LABS: Band Neutrophils 7 % (0-10); Hypochromasia 1+; Lymphocytes 22 % (20-55); Microcytosis 1+; Ovalocytes Slight; Platelet Estimate Decreased; Segmented Neutrophils 68 % (50-85); Total Cells Counted 100
[2020-01-03] MEDS ORDERED: VANCOMYCIN INJ 1,000 MG in SODIUM CHLORIDE 0.9% 250 ML IV STA (05:17)
[2020-01-03 05:25] LABS: INR 1.5; PT Patient Result 15.6 SECS (9.8-11.9)
[2020-01-03] MEDS ORDERED: SODIUM CHLORIDE 0.9% 1,000 ML IV PRN ×2 (05:55→08:07)
[2020-01-03] MEDS ORDERED: ALBUTEROL 2.5 MG/3 ML NEB RESP TX PRN (06:06)
[2020-01-03] MEDS ORDERED: DOCUSATE SODIUM 100 MG CAPSULE PO PRN (06:06)
[2020-01-03] MEDS ORDERED: ACETAMINOPHEN 325 MG TABLET PO PRN (06:06)
[2020-01-03] MEDS ORDERED: SODIUM CHLORIDE 0.9% 1,000 ML IV SCH (06:30)
[2020-01-03 06:41] LABS: ABG Base Excess -13.3 MMOL/L (-2.5-2.5); ABG HCO3 7.5 MMOL/L (20-26); ABG PH 7.419 (7.35-7.45); ABG PO2 149.5 MM HG (80-95); ABG TCO2 7.8 MMOL/L (23-27)
[2020-01-03 06:43] LABS: ABG PCO2 11.8 MM HG (35-48)
[2020-01-03] MEDS ORDERED: SODIUM CHLORIDE 0.9% 1,000 ML IV ONE (06:57)
[2020-01-03] MEDS ORDERED: ePHEDrine 50 MG/ML VIAL ONE (08:05)
[2020-01-03] MEDS ORDERED: fentaNYL 100 MCG/2 ML VIAL ONE (08:05)
[2020-01-03] MEDS ORDERED: SUGAMMADEX 200 MG/2 ML VIAL IV ONE (08:28)
[2020-01-03] MEDS ORDERED: PHENYLEPHRINE DRIP 20 MG/250 ML PREMIX IV ONE (08:46)
[2020-01-03] MEDS ORDERED: PHENYLEPHRINE 1 MG/10 ML SYRINGE IV ONE (08:46)
[2020-01-03] MEDS: PHENYLEPHRINE DRIP 40 MG/250 ML PREMIX IV PRN ×2 (08:55→12:15)
[2020-01-03] MEDS ORDERED: METOPROLOL TARTRATE 5 MG/5 ML VIAL IV ONE (10:40)
[2020-01-03] MEDS: SODIUM BICARB INJ 50 MEQ in SODIUM CHLORIDE 0.45% 1,000 ML IV SCH ×2 (12:30→15:38)
[2020-01-03] MEDS: cefTRIAXone 1,000 MG in SYRINGE 1 EACH IV SCH (15:39)
[2020-01-03 15:44] LABS: Calcium 7.5 MG/DL (8.5-10.1); Osmolality,Calculated 302.3 MOS/KG (273-304)
[2020-01-03] MEDS ORDERED: VANCOMYCIN INJ 1,000 MG in SODIUM CHLORIDE 0.9% 250 ML IV PRN (17:00)
[2020-01-03] MEDS ORDERED: SODIUM BICARBONATE 50 MEQ/50 ML VIAL IV ONE (17:06)
[2020-01-03] MEDS ORDERED: PIPERACILLIN/TAZOBACTAM 3,375 MG in SODIUM CHLORIDE 0.9% 100 ML IV SCH (18:00)
[2020-01-03] MEDS: SODIUM BICARB INJ 150 MEQ in DEXTROSE 5% 850 ML IV SCH (18:22)
[2020-01-03] MEDS ORDERED: ACETAMINOPHEN 650 MG SUPP RECTAL PRN (19:24)
[2020-01-04] MEDS: SODIUM BICARB INJ 150 MEQ in DEXTROSE 5% 850 ML IV SCH ×2 (00:42→08:02)
[2020-01-04 04:42] LABS: Basophils # 0.1 10*3/uL (0.0-0.2); Basophils % 0.6 % (0.0-0.8); Hematocrit 30.3 VOL% (35.7-47.0); Immature Granulocytes % 12.4 %; Immature Granulocytes Absolute 1.11 #; Lymphocytes % 10.8 % (21.3-54.2); Mean Corpuscular HGB Conc 32.7 GM/DL (32-36); Mean Corpuscular Volume 91.5 FL (87-102); Mean Platelet Volume 11.3 FL (9.6-12.0); Monocytes % 3.2 % (1.7-12.7); Red Cell Distribution Width 16.9 % (9.3-17.3); White Blood Count 8.9 T/CUMM (4-12)
[2020-01-04 04:45] LABS: Red Blood Count 3.31 MC/CUMM (3.8-5.5)
[2020-01-04 04:46] LABS: Hemoglobin 9.9 GM/DL (12.0-16.0); Platelet Count 52 T/CUMM (130-400)
[2020-01-04 05:08] LABS: Band Neutrophils 8 % (0-10); Lymphocytes 9 % (20-55); Platelet Estimate Decreased; Segmented Neutrophils 80 % (50-85); Total Cells Counted 100
[2020-01-04 05:09] LABS: Hypochromasia Slight
[2020-01-04 05:14] LABS: Albumin 2.4 G/DL (3.4-5.0); Bilirubin,Total 1.6 MG/DL (0.2-1.0); Osmolality,Calculated 307.1 MOS/KG (273-304); Total Protein 6.3 G/DL (6.4-8.3)
[2020-01-04] MEDS: ACETAMINOPHEN 325 MG TABLET PO PRN ×3 (05:14→20:34)
[2020-01-04] MEDS ORDERED: LEVALBUTEROL 1.25 MG/3 ML NEB RESP TX PRN (05:27)
[2020-01-04] MEDS ORDERED: POTASSIUM CHLORIDE 20 MEQ TABLET PO ONE (05:41)
[2020-01-04] MEDS ORDERED: MAGNESIUM SULF RIDER 2 GM in PREMIX 1 EACH IV ONE (08:07)
[2020-01-04] MEDS: POTASSIUM CHLORIDE 20 MEQ TABLET PO PRN ×2 (09:01→14:00)
[2020-01-04] MEDS: MULTIVITAMIN (CENTRUM) TABLET PO SCH (09:01)
[2020-01-04] MEDS: NEBIVOLOL 5 MG TABLET PO SCH (09:01)
[2020-01-04] MEDS: LACTULOSE 20 GM/30 ML UDCUP PO SCH (09:01)
[2020-01-04] MEDS: DEXTROSE 5% 1,000 ML IV SCH (11:46)
[2020-01-04] MEDS: cefTRIAXone 1,000 MG in SYRINGE 1 EACH IV SCH (16:10)
[2020-01-04] MEDS: TAMSULOSIN 0.4 MG CAPSULE PO SCH (20:34)
[2020-01-05] MEDS ORDERED: LORazepam 2 MG/1 ML VIAL IV ONE (02:42)
[2020-01-05 04:44] LABS: Basophils % 0.1 % (0.0-0.8); Eosinophils % 0.6 % (0.00-10.9); Hematocrit 28.1 VOL% (35.7-47.0); Hemoglobin 9.2 GM/DL (12.0-16.0); Immature Granulocytes % 0.3 %; Immature Granulocytes Absolute 0.02 #; Lymphocytes # 1.3 10*3/uL (1.4-4.0); Lymphocytes % 18.6 % (21.3-54.2); Mean Corpuscular HGB Conc 32.7 GM/DL (32-36); Mean Corpuscular Volume 90.9 FL (87-102); Mean Platelet Volume 11.4 FL (9.6-12.0); Monocytes % 4.7 % (1.7-12.7); Neutrophils % 75.7 % (38.7-73.9); Red Blood Count 3.09 MC/CUMM (3.8-5.5); Red Cell Distribution Width 16.8 % (9.3-17.3); White Blood Count 6.8 T/CUMM (4-12)
[2020-01-05 04:45] LABS: Platelet Count 54 T/CUMM (130-400)
[2020-01-05 04:57] LABS: Albumin 2.2 G/DL (3.4-5.0); Bilirubin,Total 1.7 MG/DL (0.2-1.0); Calcium 8.2 MG/DL (8.5-10.1); Osmolality,Calculated 290.7 MOS/KG (273-304); Total Protein 5.9 G/DL (6.4-8.3)
[2020-01-05 05:07] LABS: Band Neutrophils 4 % (0-10); Lymphocytes 18 % (20-55); Segmented Neutrophils 72 % (50-85); Total Cells Counted 100
[2020-01-05 05:08] LABS: Hypochromasia 2+; Platelet Estimate Decreased
[2020-01-05] MEDS: POTASSIUM CHLORIDE RIDER 10 MEQ in PREMIX 1 EACH IV PRN ×3 (05:25→09:05)
[2020-01-05] MEDS: DEXTROSE 5% 1,000 ML IV SCH (08:00)
[2020-01-05] MEDS: NEBIVOLOL 5 MG TABLET PO SCH (09:02)
[2020-01-05] MEDS: MULTIVITAMIN (CENTRUM) TABLET PO SCH (09:02)
[2020-01-05] MEDS: LACTULOSE 20 GM/30 ML UDCUP PO SCH (09:02)
[2020-01-05] MEDS ORDERED: FUROSEMIDE 40 MG/4 ML VIAL IV ONE (09:54)
[2020-01-05] MEDS ORDERED: POTASSIUM CHLORIDE 20 MEQ TABLET PO ONE (09:54)
[2020-01-05] MEDS: cefTRIAXone 1,000 MG in SYRINGE 1 EACH IV SCH (15:45)
[2020-01-05] MEDS: TAMSULOSIN 0.4 MG CAPSULE PO SCH (20:52)
[2020-01-05] MEDS: ACETAMINOPHEN 325 MG TABLET PO PRN (20:53)
[2020-01-06] MEDS: ACETAMINOPHEN 325 MG TABLET PO PRN ×2 (06:28→18:45)
[2020-01-06 06:59] LABS: Basophils % 0.2 % (0.0-0.8); Eosinophils # 0.2 10*3/uL (0.0-0.87); Hematocrit 31.2 VOL% (35.7-47.0); Hemoglobin 10.2 GM/DL (12.0-16.0); Immature Granulocytes % 0.6 %; Immature Granulocytes Absolute 0.03 #; Lymphocytes # 1.7 10*3/uL (1.4-4.0); Lymphocytes % 31.1 % (21.3-54.2); Mean Corpuscular HGB Conc 32.7 GM/DL (32-36); Mean Corpuscular Volume 90.4 FL (87-102); Mean Platelet Volume 10.6 FL (9.6-12.0); Monocytes % 12.1 % (1.7-12.7); Red Blood Count 3.45 MC/CUMM (3.8-5.5); Red Cell Distribution Width 16.3 % (9.3-17.3); White Blood Count 5.4 T/CUMM (4-12)
[2020-01-06 07:02] LABS: Platelet Count 60 T/CUMM (130-400)
[2020-01-06 07:29] LABS: Eosinophils 5 % (0-10); Hypochromasia 1+; Lymphocytes 27 % (20-55); Microcytosis 1+; Ovalocytes Slight; Platelet Estimate Decreased; Segmented Neutrophils 60 % (50-85); Total Cells Counted 100
[2020-01-06 07:31] LABS: Albumin 2.4 G/DL (3.4-5.0); Bilirubin,Total 1.2 MG/DL (0.2-1.0); Calcium 8.8 MG/DL (8.5-10.1); Osmolality,Calculated 284.1 MOS/KG (273-304); Total Protein 6.5 G/DL (6.4-8.3)
[2020-01-06] MEDS: MULTIVITAMIN (CENTRUM) TABLET PO SCH (09:06)
[2020-01-06] MEDS: LACTULOSE 20 GM/30 ML UDCUP PO SCH (09:06)
[2020-01-06] MEDS: NEBIVOLOL 5 MG TABLET PO SCH (09:06)
[2020-01-06] MEDS: CIPROFLOXACIN INJ 400 MG in PREMIX 1 EACH IV SCH ×2 (09:48→21:27)
[2020-01-06] MEDS: ONDANSETRON 4 MG/2 ML VIAL IV PRN (10:33)
[2020-01-06] MEDS ORDERED: traMADol 50 MG TABLET PO ONE (20:51)
[2020-01-06] MEDS: TAMSULOSIN 0.4 MG CAPSULE PO SCH (21:25)
[2020-01-07] MEDS ORDERED: traMADol 50 MG TABLET PO PRN (03:54)
[2020-01-07 05:50] LABS: Basophils % 0.4 % (0.0-0.8); Eosinophils # 0.2 10*3/uL (0.0-0.87); Eosinophils % 3.4 % (0.00-10.9); Hematocrit 29.1 VOL% (35.7-47.0); Hemoglobin 9.7 GM/DL (12.0-16.0); Immature Granulocytes % 0.7 %; Immature Granulocytes Absolute 0.04 #; Lymphocytes # 1.6 10*3/uL (1.4-4.0); Lymphocytes % 29.2 % (21.3-54.2); Mean Corpuscular HGB Conc 33.3 GM/DL (32-36); Mean Corpuscular Volume 90.7 FL (87-102); Monocytes % 14.7 % (1.7-12.7); Neutrophils % 51.6 % (38.7-73.9); Platelet Count 68 T/CUMM (130-400); Red Blood Count 3.21 MC/CUMM (3.8-5.5); White Blood Count 5.5 T/CUMM (4-12)
[2020-01-07 06:13] LABS: Band Neutrophils 1 % (0-10); Eosinophils 3 % (0-10); Hypochromasia 1+; Lymphocytes 29 % (20-55); Microcytosis 1+; Platelet Estimate Decreased; Segmented Neutrophils 59 % (50-85); Total Cells Counted 100
[2020-01-07 06:14] LABS: Calcium 8.4 MG/DL (8.5-10.1); Osmolality,Calculated 281.3 MOS/KG (273-304)
[2020-01-07] MEDS: POTASSIUM CHLORIDE 20 MEQ TABLET PO PRN ×3 (06:44→12:10)
[2020-01-07] MEDS: MULTIVITAMIN (CENTRUM) TABLET PO SCH (10:03)
[2020-01-07] MEDS: NEBIVOLOL 5 MG TABLET PO SCH (10:04)
[2020-01-07] MEDS: CIPROFLOXACIN INJ 400 MG in PREMIX 1 EACH IV SCH (10:04)
[2020-01-07] MEDS: LACTULOSE 20 GM/30 ML UDCUP PO SCH (10:04)
[2020-01-07] MEDS: ONDANSETRON 4 MG/2 ML VIAL IV PRN (12:03)
[2020-01-07 12:30] VITALS: BP 112/53
== END 2020-01-07 14:31 | disposition home health service (06) | DRG 871 ==
LOC: EDUNIT# → EDBD → N.ED 03:37 → SUATTDRO 05:26 → N.EDINP 05:26 → N.CC 05:57 → N.TELES 01-05 18:15
PROVIDERS: ADMIT Family Medicine; ATTEND Internal Medicine

== ENCOUNTER 2020-03-29 | Observation (INO) ==
[2020-03-29] MEDS ORDERED: SODIUM CHLORIDE 0.9% 500 ML IV STA (00:31)
[2020-03-29 00:41] LABS: Basophils % 0.3 % (0.0-0.8); Eosinophils # 0.1 10*3/uL (0.0-0.87); Eosinophils % 3.3 % (0.00-10.9); Hematocrit 34.8 VOL% (35.7-47.0); Hemoglobin 11.2 GM/DL (12.0-16.0); Immature Granulocytes % 0.6 %; Immature Granulocytes Absolute 0.02 #; Lymphocytes # 1.5 10*3/uL (1.4-4.0); Lymphocytes % 44.7 % (21.3-54.2); Mean Corpuscular HGB Conc 32.2 GM/DL (32-36); Mean Corpuscular Volume 95.9 FL (87-102); Mean Platelet Volume 12.8 FL (9.6-12.0); Monocytes % 9.9 % (1.7-12.7); Neutrophils % 41.2 % (38.7-73.9); Platelet Count 119 T/CUMM (130-400); Red Blood Count 3.63 MC/CUMM (3.8-5.5); Red Cell Distribution Width 16.3 % (9.3-17.3); White Blood Count 3.3 T/CUMM (4-12)
[2020-03-29 00:50] LABS: Albumin 3.3 G/DL (3.4-5.0); Bilirubin,Total 0.4 MG/DL (0.2-1.0); Calcium 9.4 MG/DL (8.5-10.1); Osmolality,Calculated 285.8 MOS/KG (273-304); Potassium 4.6 MMOL/L (3.5-5.1); Total Protein 7.5 G/DL (6.4-8.3)
[2020-03-29 00:52] LABS: CKMB % 1.5 %; Troponin I < 0.015 NG/ML (0.00-0.045)
[2020-03-29 01:29] LABS: Bacteria,Urine Occasional /HPF (Few); Bilirubin,Urine Negative (Negative); Blood, Urine Large mg/dL (Negative); Glucose,Urine (UA) Negative (Negative); Ketones,Urine Negative (Negative); Nitrite,Urine Negative (Negative); Protein,Urine Negative; RBC,Urine 12 /HPF (0-4); Urine Appearance CLEAR (Clear); Urine Color Straw (Yellow); Urine Specific Gravity 1.004 (1.001-1.035); Urine Urobilinogen < 2.0 EU/DL (0.2-1.0); WBC,Urine 2 /HPF (0-6)
[2020-03-29] MEDS ORDERED: LACTULOSE 20 GM/30 ML UDCUP PO STA (01:50)
[2020-03-29 01:53] LABS: Barbiturates Screen,Urine Negative (Negative); Benzodiazepines Screen,Urine Negative (Negative); Cannabinoid Screen,Urine Negative (Negative); Opiate Screen,Urine Positive (Negative); Phencyclidine Screen,Urine Negative (Negative)
[2020-03-29] MEDS ORDERED: KETOROLAC 30 MG/1 ML VIAL IV STA (03:10)
[2020-03-29] MEDS ORDERED: GLUCAGON 1 MG VIAL IM PRN (04:47)
[2020-03-29] MEDS ORDERED: ONDANSETRON 4 MG/2 ML VIAL IV PRN (04:47)
[2020-03-29] MEDS ORDERED: DEXTROSE 50% 25 GM/50 ML VIAL IV PRN (04:47)
[2020-03-29] MEDS ORDERED: LACTULOSE 20 GM/30 ML UDCUP PO SCH (06:00)
[2020-03-29] MEDS: LACTULOSE 20 GM/30 ML UDCUP PO SCH ×3 (09:06→21:41)
[2020-03-29] MEDS: ENOXAPARIN 40 MG/0.4 ML SYRINGE SUBCUT SCH (09:06)
[2020-03-30] MEDS: LACTULOSE 20 GM/30 ML UDCUP PO SCH ×4 (03:29→21:57)
[2020-03-30 05:53] LABS: Basophils % 0.2 % (0.0-0.8); Eosinophils # 0.2 10*3/uL (0.0-0.87); Eosinophils % 3.2 % (0.00-10.9); Hematocrit 35.5 VOL% (35.7-47.0); Hemoglobin 11.6 GM/DL (12.0-16.0); Immature Granulocytes % 0.4 %; Immature Granulocytes Absolute 0.02 #; Lymphocytes # 1.5 10*3/uL (1.4-4.0); Lymphocytes % 30.9 % (21.3-54.2); Mean Corpuscular HGB Conc 32.7 GM/DL (32-36); Mean Corpuscular Volume 94.7 FL (87-102); Mean Platelet Volume 10.1 FL (9.6-12.0); Monocytes % 14.3 % (1.7-12.7); Platelet Count 100 T/CUMM (130-400); Red Blood Count 3.75 MC/CUMM (3.8-5.5); White Blood Count 4.7 T/CUMM (4-12)
[2020-03-30 06:46] LABS: Albumin 2.9 G/DL (3.4-5.0); Bilirubin,Total 0.8 MG/DL (0.2-1.0); Osmolality,Calculated 282.1 MOS/KG (273-304); Potassium 3.2 MMOL/L (3.5-5.1)
[2020-03-30] MEDS: NEBIVOLOL 5 MG TABLET PO SCH (09:11)
[2020-03-30] MEDS: PANTOPRAZOLE 40 MG TABLET PO SCH (09:11)
[2020-03-30] MEDS: ENOXAPARIN 40 MG/0.4 ML SYRINGE SUBCUT SCH (09:12)
[2020-03-30] MEDS ORDERED: POTASSIUM CHLORIDE 20 MEQ TABLET PO PRN (13:40)
[2020-03-30] MEDS ORDERED: SIMVASTATIN 10 MG TABLET PO SCH (21:00)
[2020-03-31] MEDS: LACTULOSE 20 GM/30 ML UDCUP PO SCH ×2 (02:35→09:01)
[2020-03-31 06:25] LABS: Albumin 2.8 G/DL (3.4-5.0); Bilirubin,Total 0.8 MG/DL (0.2-1.0); Calcium 8.8 MG/DL (8.5-10.1); Total Protein 6.8 G/DL (6.4-8.3)
[2020-03-31 06:26] LABS: Osmolality,Calculated 284.8 MOS/KG (273-304); Potassium 3.1 MMOL/L (3.5-5.1)
[2020-03-31 06:50] LABS: Troponin I < 0.015 NG/ML (0.00-0.045)
[2020-03-31] MEDS: ENOXAPARIN 40 MG/0.4 ML SYRINGE SUBCUT SCH (09:00)
[2020-03-31] MEDS: PANTOPRAZOLE 40 MG TABLET PO SCH (09:01)
[2020-03-31] MEDS: NEBIVOLOL 5 MG TABLET PO SCH (09:08)
[2020-03-31 11:44] VITALS: BP 133/49
== END 2020-03-31 14:35 | disposition home or self-care (01) ==
LOC: EDUNIT# → EDBD → N.ED → N.EDINP → N.3E 14:53
PROVIDERS: ADMIT Family Medicine; ATTEND Family Medicine

== ENCOUNTER 2021-12-18 10:56 | Inpatient (IN) ==
[2021-12-18] MEDS ORDERED: SODIUM CHLORIDE 0.9% 1,000 ML IV STA (11:40)
[2021-12-18] MEDS ORDERED: KETOROLAC 30 MG/1 ML VIAL IV STA (11:40)
[2021-12-18 11:54] LABS: Basophils % 0.2 % (0.0-0.8); Eosinophils % 0.7 % (0.00-10.9); Hematocrit 36.7 VOL% (35.7-47.0); Hemoglobin 12.5 GM/DL (12.0-16.0); Immature Granulocytes % 0.5 %; Immature Granulocytes Absolute 0.02 #; Lymphocytes # 0.7 10*3/uL (1.4-4.0); Lymphocytes % 16.1 % (21.3-54.2); Mean Corpuscular HGB Conc 34.1 GM/DL (32-36); Mean Corpuscular Volume 98.4 FL (87-102); Mean Platelet Volume 9.8 FL (9.6-12.0); Monocytes # 0.5 10*3/uL (0.11-0.8); Monocytes % 11.2 % (1.7-12.7); Neutrophils % 71.3 % (38.7-73.9); Platelet Count 72 T/CUMM (130-400); Red Blood Count 3.73 MC/CUMM (3.8-5.5); White Blood Count 4.1 T/CUMM (4-12)
[2021-12-18 12:07] LABS: Albumin 3.3 G/DL (3.4-5.0); Bilirubin,Total 1.7 MG/DL (0.20-1.00); Calcium 9.1 MG/DL (8.5-10.1); Osmolality,Calculated 277.5 MOS/KG (273-304); Potassium 3.9 MMOL/L (3.5-5.1); Total Protein 7.3 G/DL (6.4-8.2)
[2021-12-18 12:24] LABS: Bacteria,Urine Occasional /HPF (Few); Bilirubin,Urine Negative (Negative); Blood, Urine Negative (Negative); Glucose,Urine (UA) Negative (Negative); Ketones,Urine Negative (Negative); Mucus,Urine Occasional /LPF (Occasional); Nitrite,Urine Negative (Negative); Protein,Urine Negative (Negative); RBC,Urine 1 /HPF (0-4); Squamous Epithelial Cell,Urine Occasional /HPF (0-10); Urine Appearance Slightly Hazy (Clear); Urine Color Yellow (Yellow); Urine Specific Gravity 1.012 (1.001-1.035); Urine Urobilinogen < 2.0 eU/dL (<2.0)
[2021-12-18] MEDS ORDERED: cefTRIAXone 1,000 MG in SODIUM CHLORIDE 0.9% 100 ML IV STA (12:56)
[2021-12-18] MEDS ORDERED: ALBUTEROL 2.5 MG/3 ML NEB RESP TX PRN (14:56)
[2021-12-18] MEDS ORDERED: SIMETHICONE CHEW 125 MG TABLET PO PRN (14:56)
[2021-12-18] MEDS ORDERED: ACETAMINOPHEN 325 MG TABLET PO PRN (14:56)
[2021-12-18] MEDS ORDERED: ONDANSETRON 4 MG/2 ML VIAL IV PRN (14:56)
[2021-12-18] MEDS ORDERED: ALUMINUM/MAGNES/SIMETH MAX STR 30 ML UDCUP PO PRN (14:56)
[2021-12-18] MEDS ORDERED: ENOXAPARIN 40 MG/0.4 ML SYRINGE SUBCUT SCH (15:00)
[2021-12-18] MEDS ORDERED: SODIUM CHLORIDE 0.9% 1,000 ML IV SCH (15:00)
[2021-12-18] MEDS ORDERED: CALCIUM CARBONATE CHEW 500 MG TABLET PO PRN (17:00)
[2021-12-18] MEDS ORDERED: FLUTICASONE 50 MCG NASAL SPRAY 16 GM BOTTLE BOTH NARES PRN (17:00)
[2021-12-18] MEDS: LACTATED RINGERS 1,000 ML IV SCH (18:50)
[2021-12-18] MEDS: ALBUTEROL/IPRATROPIUM 3 ML NEB RESP TX SCH (19:08)
[2021-12-18] MEDS: LACTULOSE 20 GM/30 ML UDCUP PO SCH (21:06)
[2021-12-18] MEDS: TAMSULOSIN 0.4 MG CAPSULE PO SCH (21:06)
[2021-12-18] MEDS ORDERED: traZODone 50 MG TABLET PO PRN (23:40)
[2021-12-19] MEDS: ALBUTEROL/IPRATROPIUM 3 ML NEB RESP TX SCH ×4 (00:55→19:17)
[2021-12-19] MEDS: LACTATED RINGERS 1,000 ML IV SCH ×4 (02:19→18:26)
[2021-12-19 05:28] LABS: Basophils % 0.3 % (0.0-0.8); Hematocrit 32.3 VOL% (35.7-47.0); Immature Granulocytes % 0.3 %; Immature Granulocytes Absolute 0.01 #; Lymphocytes # 0.8 10*3/uL (1.4-4.0); Lymphocytes % 24.6 % (21.3-54.2); Mean Corpuscular HGB Conc 34.1 GM/DL (32-36); Mean Corpuscular Volume 99.1 FL (87-102); Mean Platelet Volume 9.7 FL (9.6-12.0); Monocytes # 0.6 10*3/uL (0.11-0.8); Monocytes % 16.6 % (1.7-12.7); Neutrophils % 58.2 % (38.7-73.9); Platelet Count 55 T/CUMM (130-400); Red Blood Count 3.26 MC/CUMM (3.8-5.5); Red Cell Distribution Width 13.8 % (9.3-17.3); White Blood Count 3.4 T/CUMM (4-12)
[2021-12-19 05:53] LABS: Calcium 8.6 MG/DL (8.5-10.1); Eosinophils 1 % (0-10); Lymphocytes 27 % (20-55); Osmolality,Calculated 281.3 MOS/KG (273-304); Platelet Estimate Decreased; Potassium 3.5 MMOL/L (3.5-5.1); Risk Ratio 2.64; Thyroid Stimulating Hormone 0.813 uIU/ml (0.358-3.74); Total Cells Counted 100; VLDL Cholesterol 14.2 MG/DL
[2021-12-19 05:54] LABS: Hypochromia Slight; Microcytosis Slight
[2021-12-19] MEDS: LACTULOSE 20 GM/30 ML UDCUP PO SCH ×3 (08:08→20:34)
[2021-12-19] MEDS: POTASSIUM CHLORIDE 20 MEQ TABLET PO SCH (08:08)
[2021-12-19] MEDS: CHOLECALCIFEROL 1,000 UNIT TABLET PO SCH (08:11)
[2021-12-19] MEDS ORDERED: PANTOPRAZOLE 40 MG TABLET PO SCH (09:00)
[2021-12-19] MEDS ORDERED: SIMVASTATIN 10 MG TABLET PO SCH (09:00)
[2021-12-19] MEDS: cefTRIAXone 1,000 MG in SODIUM CHLORIDE 0.9% 100 ML IV SCH (14:08)
[2021-12-19] MEDS: SUCRALFATE 1 GM TABLET PO SCH (16:50)
[2021-12-19] MEDS: TAMSULOSIN 0.4 MG CAPSULE PO SCH (20:34)
[2021-12-19] MEDS: SIMVASTATIN 10 MG TABLET PO SCH (20:34)
[2021-12-20] MEDS: ALBUTEROL/IPRATROPIUM 3 ML NEB RESP TX SCH ×4 (00:07→19:03)
[2021-12-20 05:46] LABS: Basophils % 0.4 % (0.0-0.8); Eosinophils % 1.7 % (0.00-10.9); Hematocrit 28.7 VOL% (35.7-47.0); Hemoglobin 9.8 GM/DL (12.0-16.0); Immature Granulocytes % 0.4 %; Immature Granulocytes Absolute 0.01 #; Lymphocytes # 0.8 10*3/uL (1.4-4.0); Lymphocytes % 35.5 % (21.3-54.2); Mean Corpuscular HGB Conc 34.1 GM/DL (32-36); Mean Platelet Volume 10.1 FL (9.6-12.0); Monocytes # 0.4 10*3/uL (0.11-0.8); Monocytes % 18.8 % (1.7-12.7); Neutrophils % 43.2 % (38.7-73.9); Platelet Count 49 T/CUMM (130-400); White Blood Count 2.3 T/CUMM (4-12)
[2021-12-20 05:59] LABS: Potassium 3.1 MMOL/L (3.5-5.1)
[2021-12-20 06:07] LABS: Eosinophils 2 % (0-10); Lymphocytes 24 % (20-55); Platelet Estimate Decreased; Total Cells Counted 100
[2021-12-20] MEDS: SUCRALFATE 1 GM TABLET PO SCH ×2 (08:09→16:17)
[2021-12-20] MEDS: POTASSIUM CHLORIDE 20 MEQ TABLET PO SCH (08:09)
[2021-12-20] MEDS: CHOLECALCIFEROL 1,000 UNIT TABLET PO SCH (08:09)
[2021-12-20] MEDS: LACTULOSE 20 GM/30 ML UDCUP PO SCH ×3 (08:10→21:14)
[2021-12-20] MEDS: cefTRIAXone 1,000 MG in SODIUM CHLORIDE 0.9% 100 ML IV SCH (08:11)
[2021-12-20] MEDS: LACTATED RINGERS 1,000 ML IV SCH ×2 (09:12→18:00)
[2021-12-20] MEDS: TAMSULOSIN 0.4 MG CAPSULE PO SCH (21:14)
[2021-12-20] MEDS: SIMVASTATIN 10 MG TABLET PO SCH (21:14)
[2021-12-21] MEDS: ALBUTEROL/IPRATROPIUM 3 ML NEB RESP TX SCH ×4 (00:06→20:04)
[2021-12-21] MEDS: LACTATED RINGERS 1,000 ML IV SCH ×2 (05:10→20:44)
[2021-12-21 05:45] LABS: Basophils % 0.5 % (0.0-0.8); Eosinophils # 0.1 10*3/uL (0.0-0.87); Eosinophils % 4.3 % (0.00-10.9); Hematocrit 29.3 VOL% (35.7-47.0); Hemoglobin 9.8 GM/DL (12.0-16.0); Immature Granulocytes % 0.5 %; Immature Granulocytes Absolute 0.01 #; Lymphocytes # 0.8 10*3/uL (1.4-4.0); Lymphocytes % 43.9 % (21.3-54.2); Mean Corpuscular HGB Conc 33.4 GM/DL (32-36); Mean Corpuscular Volume 98.3 FL (87-102); Monocytes # 0.3 10*3/uL (0.11-0.8); Neutrophils % 35.8 % (38.7-73.9); Platelet Count 57 T/CUMM (130-400); Red Blood Count 2.98 MC/CUMM (3.8-5.5); White Blood Count 1.9 T/CUMM (4-12)
[2021-12-21 06:02] LABS: Calcium 8.4 MG/DL (8.5-10.1); Osmolality,Calculated 290.3 MOS/KG (273-304); Potassium 3.2 MMOL/L (3.5-5.1)
[2021-12-21 06:16] LABS: Eosinophils 2 % (0-10); Lymphocytes 42 % (20-55); Total Cells Counted 100
[2021-12-21 06:17] LABS: Platelet Estimate Decreased
[2021-12-21] MEDS: SUCRALFATE 1 GM TABLET PO SCH ×2 (09:12→16:09)
[2021-12-21] MEDS: CHOLECALCIFEROL 1,000 UNIT TABLET PO SCH (09:12)
[2021-12-21] MEDS: POTASSIUM CHLORIDE 20 MEQ TABLET PO PRN ×3 (09:12→16:09)
[2021-12-21] MEDS: LACTULOSE 20 GM/30 ML UDCUP PO SCH ×3 (09:12→20:35)
[2021-12-21] MEDS: POTASSIUM CHLORIDE 20 MEQ TABLET PO SCH (09:12)
[2021-12-21] MEDS: cefTRIAXone 1,000 MG in SODIUM CHLORIDE 0.9% 100 ML IV SCH (09:13)
[2021-12-21] MEDS: ERTAPENEM 1,000 MG in SODIUM CHLORIDE 0.9% 100 ML IV SCH (16:08)
[2021-12-21] MEDS: SIMVASTATIN 10 MG TABLET PO SCH (20:36)
[2021-12-21] MEDS: TAMSULOSIN 0.4 MG CAPSULE PO SCH (20:36)
[2021-12-22] MEDS: ALBUTEROL/IPRATROPIUM 3 ML NEB RESP TX SCH ×2 (00:25→07:05)
[2021-12-22 06:23] LABS: Basophils % 0.6 % (0.0-0.8); Eosinophils # 0.1 10*3/uL (0.0-0.87); Eosinophils % 6.4 % (0.00-10.9); Hematocrit 28.9 VOL% (35.7-47.0); Hemoglobin 9.7 GM/DL (12.0-16.0); Immature Granulocytes % 0.6 %; Immature Granulocytes Absolute 0.01 #; Lymphocytes # 0.8 10*3/uL (1.4-4.0); Lymphocytes % 45.1 % (21.3-54.2); Mean Corpuscular HGB Conc 33.6 GM/DL (32-36); Mean Platelet Volume 9.6 FL (9.6-12.0); Monocytes # 0.2 10*3/uL (0.11-0.8); Monocytes % 9.2 % (1.7-12.7); Neutrophils % 38.1 % (38.7-73.9); Platelet Count 66 T/CUMM (130-400); Red Blood Count 2.89 MC/CUMM (3.8-5.5); Red Cell Distribution Width 14.4 % (9.3-17.3); White Blood Count 1.7 T/CUMM (4-12)
[2021-12-22 06:56] LABS: Calcium 8.8 MG/DL (8.5-10.1); Osmolality,Calculated 287.4 MOS/KG (273-304); Potassium 3.7 MMOL/L (3.5-5.1)
[2021-12-22 06:58] LABS: Eosinophils 8 % (0-10); Lymphocytes 37 % (20-55); Platelet Estimate Decreased; Total Cells Counted 100
[2021-12-22] MEDS ORDERED: FLUTICASONE 50 MCG NASAL SPRAY 16 GM BOTTLE BOTH NARES SCH (09:00)
[2021-12-22] MEDS: LACTULOSE 20 GM/30 ML UDCUP PO SCH (09:01)
[2021-12-22] MEDS: CHOLECALCIFEROL 1,000 UNIT TABLET PO SCH (09:01)
[2021-12-22] MEDS: SUCRALFATE 1 GM TABLET PO SCH (09:02)
[2021-12-22] MEDS: POTASSIUM CHLORIDE 20 MEQ TABLET PO SCH (09:02)
[2021-12-22 12:51] VITALS: BP 120/45
[2021-12-22] MEDS: ERTAPENEM 1,000 MG in SODIUM CHLORIDE 0.9% 100 ML IV SCH (13:31)
== END 2021-12-22 14:52 | disposition home health service (06) | DRG 699 ==
LOC: N.ED 10:56 → N.EDINP 14:56 → SUATTDRO 14:56 → N.5E 17:05
PROVIDERS: ADMIT Internal Medicine; ATTEND Internal Medicine